=== PATIENT | male | born 2000 | race Caucasian/White ===

== ENCOUNTER 2022-09-14 13:20 | Emergency (ER) | payer OTHER, SELFPAY ==
[2022-09-14 13:48] VITALS: BP 108/85; PULSE 121; RESP 20; TEMP 36.8; O2SAT 98; BMI 22.9
--- NOTE | 2022-09-14 13:48 | ED.GENADULT ---
HPI - General Adult General Chief complaint: Skin/Abscess/Foreign Body Stated complaint: lower back infection Time Seen by Provider: 09/14/22 16:14 Source: patient and RN notes reviewed Mode of arrival: ambulatory Limitations: no limitations History of Present Illness HPI narrative: This is a 22-year-old male who presents the emergency department, accompanied by his grandmother, complaints of redness, pain, and swelling to his upper gluteal cleft. Patient reports that he noticed pain redness and swelling to this area 1 week ago and was seen by his primary care physician at [facility] who prescribed the patient Keflex. Patient reports that they are taking Keflex 4 times a day for 3 days and noticed that the area was not improving the patient was switched to doxycycline 100 mg for 10 days. Patient reports that since taking these antibiotics the pain swelling and redness has not improved. Patient denies any known fevers or chills. There otherwise feeling well. Reports difficulty sitting down as this causes the pain to increase. No drainage from the area. No other complaints or concerns at this time. MD complaint: Pilonidal cyst, cellulitis Onset (ago): week(s) Severity: moderate Quality: aching Pain Consistency: constant Relieving factors: immobilization Exacerbating factors: movement Associated symptoms: denies other symptoms Treatments prior to arrival: none Related Data Allergies Allergy/AdvReac Type Severity Reaction Status Date / Time sertraline [From Zoloft] Allergy Unknown Verified 09/14/22 17:14 Review of Systems Review of Systems: Constitutional: No Weight loss, No Fever, No Chills, No Night Sweats, No Fatigue, No Malaise ENT/Mouth: No Hearing loss, No Ear Pain, No Nasal Congestion, No Sinus Pain, No Hoarseness, No sore throat, No Rhinorrhea, No Swallowing Difficulty Eyes: No Eye Pain, No Swelling, No Redness, No Foreign Body, No Discharge, No Vision Changes Cardiovascular: No Chest Pain, No SOB, No Dyspnea on Exertion, No Orthopnea, No Edema, No Palpitations Respiratory: No Cough, No Sputum, No Wheezing, No Smoke Exposure, No Dyspnea Gastrointestinal: No Nausea, No Vomiting, No Diarrhea, No Constipation, No Abdominal pain, No Hematochezia, No Melena Genitourinary: No irregular bleeding, No Dysuria, No Urinary Frequency, No Hematuria, No Urinary Incontinence/retention, No Urgency, No Flank Pain, No Urinary Flow Changes, No Hesitancy Musculoskeletal: No joint pain, No Myalgias, No Joint Swelling Skin:+ Skin Lesions, No rash Neuro: No Weakness, No Numbness, No Paresthesias, No Loss of Consciousness, No Dizziness, No Headache Psych: No Anxiety/Panic, No Depression, No SI/HI/AH/VH, No Social Issues, Heme/Lymph: No Bruising, No Bleeding,No Lymphadenopathy Endocrine: No Polyuria, No Polydipsia, No Temperature Intolerance Yes all other systems are reviewed and are negative Constitutional: Constitutional: Reports as per HPI [facility] Social History Social History Advance Directives: No Advance Directives Information Provided: No Physical Exam ED Vital Signs: Vital Signs - 24 hr 09/14/22 13:48 09/14/22 16:33 09/14/22 18:17 Temperature 98.3 F 98.7 F 98.7 F Pulse Rate 121 H 97 70 Respiratory Rate 20 20 18 Blood Pressure 108/85 105/63 110/74 Pulse Oximetry 98 97 100 Oxygen Delivery Method Room Air Room Air Room Air BMI result Body Mass Index 22.9 Const General: cooperative, comfortable and no acute distress Orientation/consciousness: patient oriented x3 Limitations: no limitations HENMT Head: Yes normal to inspection, Yes normocephalic and Yes atraumatic Ears: hearing grossly normal bilaterally General nose exam: Normal external nose present Face and sinus: Yes normal facial exam Mouth: Normal oral and palatal mucosa present, oropharynx normal and moist mucous membranes Throat: Yes posterior oropharynx normal Eyes General: appearance normal, both eyes and all related structures Eyelids: Yes eyelids normal Conjunctivae: conjunctivae normal Sclerae: sclerae normal Pupils: Equal, round and reactive pupils present EOM: EOMs intact bilaterally Neck Neck: Yes normal visual inspection, Yes full ROM and Yes no lymphadenopathy Lymphatic: no lymphadenopathy noted Chest Chest palpation & inspection: normal inspection of the chest Resp Effort & Inspection: normal respiratory effort and able to speak in complete sentences Cardio Rate: regular rate Rhythm: regular rhythm Heart sounds: S1 normal heart sound present and S2 normal heart sound present GI Inspection: Yes normal to inspection Skin Other: Erythema, edema, and firmness noted to the gluteal cleft on both sides. There is an area of fluctuance on the left upper gluteal cleft. No drainage. Area of erythema does not extend perirectally. General skin exam: no rashes or lesions noted Trauma: no lacerations or abrasions Wounds: no wounds Neuro General: patient oriented x3 and moves all extremities Cranial nerves: Yes Equal, round and reactive pupils present Extrem General: Yes normal to inspection Right upper extremity: normal to inspection Left upper extremity: normal to inspection Right lower extremity: normal to inspection Left lower extremity: normal to inspection Course Course Course Narrative: RME performed by Anastasia Barker PA-C. Patient is a 22 year old male presenting to the emergency department with a pilonidal cyst. Patient placed back in the waiting room pending room availability. Medications Administered Discontinued Medications Generic Name Dose Route Start Last Admin Trade Name Freemigdio PRN Reason Stop Dose Admin Lidocaine HCl 5 ml 09/14/22 17:14 09/14/22 18:00 Lidocaine Hcl 1 % Mpf 5 Ml Vial EPIDURAL 09/14/22 17:15 5 ml ONCE ONE Administration Procedures Procedure Narrative Procedure Narrative: Local anesthesia achieved with 1% lidocaine. Small incision me in the left gluteal cleft with 11 blade scalpel. Copious amount of brown, foul-smelling drainage expressed. 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 Patient tolerated procedure well without any complications Abscess I/D Site: other (gluteal cleft) Local Anesthetic: lidocaine 1% Amount of anesthesia used (mL): 5 Technique: incised with blade Sent for culture/gram staining?: No Irrigation: No Packing used?: none Medical Decision Making Medical Decision Making [facility] Narrative: 22-year-old male presenting for evaluation of redness, swelling and pain to buttocks. On examination, vital signs are stable, patient mildly tachycardic at 121bpm, is anxious appearing, which has since improved since being brought back into the main emergency department patient is afebrile, all other vital signs within normal limits. Patient has had no fevers, chills, shortness of breath, chest pain. On examination patient has area of fluctuance. Incision and drainage was performed, copious amount of purulence, foul smelling drainage expressed from region. Patient tolerated procedure well. Patient was previously placed on doxycycline and Keflex, advised to take both of these for full coverage. Patient also given referral to surgeon and discussed the importance of following up with them as this likely will need surgical intervention. Patient has good understanding of follow-up care, given precautions of when to return. Patient understands and agrees with plan. Differential Diagnosis Differential Diagnoses: The differential diagnosis associated with the presentation includes Pilonidal cyst, abscess, cellulitis Discharge Plan Discharge Clinical Impression: Cyst, pilonidal, with abscess Patient Disposition: Home, Self-Care Instructions: Pilonidal Cyst (ED) Additional Instructions: We incised and drained your pilonidal cyst today. Expect to have this area continue to drain overnight. Please keep area clean and dry. Do not submerge wound. Do not go swimming. Please take previously prescribed doxycycline 100 mg twice a day, and Keflex 500 mg four times a day for the next 7 days. Take ibuprofen or Tylenol as needed for your pain. You may apply warm compresses to the area as this help bring more drainage the surface. Call the surgeon on Friday morning for follow-up. If any new or worsening symptoms occur including fevers, chills, worsening redness or swelling, or pain please return for re-evaluation. Referrals: [facility] General Surgeons [Provider Group] Interventions: ED Discharge Assessment Last Done: 09/14/22 18:56 Discharge Date/Time: 09/14/22 18:56
--- OUTSIDE RECORDS SUMMARY | 2022-09-14 16:30 | XMS_ITS | Continuity of Care Document ---
Author Name Unknown Organization [facility] Address [address] [place] [address]- Care Team Providers Care Auditor Appraiser Name Role Phone Grey Cobb DO Primary Care Physician Encounter [facility] Date(s): 06/02/20 - 07/06/20 [facility] [address], [place] [address] Attending Physician: Cheko VEGAS, Karon Colon Admitting Physician: Cheko VEGAS, Karon Colon Allergies, Adverse Reactions, Alerts Substance Reaction Severity Status Zoloft Active Immunizations Given and Recorded Vaccine Date Status Refusal Reason influenza virus vaccine, inactivated 06/28/19 Give n Medications 18 gauge 1-1.5 inch leur lock needle on 1 cc syringe 18 gauge 1-1.5 inch leur lock needle on 1 cc syringe, See Instructions, # 24 each, Refills 3, Tot. Refills 3, Maintenance, for use to draw up testosterone, 06/06/20 8:25:00 EST, Compound, 155.5, cm, 06/02/20 14:02:00 EST, Height, 54.2, kg, 02/11/19 11... Start Date: 06/06/20 Status: Ordered 25 gauge 5/8th inch needle 25 gauge 5/8th inch needle, See Instructions, # 24 each, Refills 3, Tot. Refills 3, Maintenance, for use with testosterone, 06/06/20 8:25:00 EST, Compound, 155.5, cm, 06/02/20 14:02:00 EST, Height, 54.2, kg, 02/11/19 11:06:00 EDT, Dry Weight Start Date: 06/06/20 Status: Ordered Misc Rx Refills 0, Maintenance, 02/11/19 11:11:08 EDT, Compound Start Date: 02/11/19 Status: Ordered Misc Rx medical marijuana, Refills 0, Maintenance, 02/11/19 11:23:59 EDT, Compound Start Date: 02/11/19 Status: Ordered omeprazole 20 mg oral enteric coated capsule 1 capsule = 20 mg, By Mouth, Daily, before a meal, # 30 capsule, 4 Refills, Maintenance, 06/02/20 14:50:00 EST, EC [facility], [id number], Partial fill upon patient request if the prescription is for a schedule II opioid drug., 155.5, cm, ... Start Date: 06/02/20 Status: Ordered pantoprazole 40 mg oral delayed release tablet 1 tablet = 40 mg, By Mouth, Daily, # 90 tablet, 0 Refills, Maintenance, 05/31/20 15:28:00 EST, EC Tablet, 155.5, cm, 06/28/19 14:50:00 EDT, Height, 54.2, kg, 02/11/19 11:06:00 EDT, Dry Weight Start Date: 05/31/20 Status: Ordered Testosterone Cypionate 200 mg/mL intramuscular solution See Instructions, 0.5ml (100 mg) Intramuscular Every 14 days, # 2 mL, 6 Refills, Maintenance, 06/06/20 8:22:00 EST, [id number], 155.5, cm, 06/02/20 14:02:00 EST, Height, 54.2, kg, 02/11/19 11:06:00 EDT, Dry Weight Start Date: 06/06/20 Status: Ordered Problem List Condition Effective Dates Status Health Status Inform ant Gender Dysphoria(Confirmed) Active Social History Social History Type Response Smoking Status Never smoker; Tobacc o user in household: No entered on: 12/28/15 Sex Female
--- OUTSIDE RECORDS SUMMARY | 2022-09-14 16:30 | XMS_ITS | Continuity of Care Document ---
Author Name Unknown Organization [facility] Address [address] [place] [address]- Care Team Providers Care Flat Clothier Name Role Phone Grey Cobb DO Primary Care Physician [phone] [facility] Date(s): 09/20/19 - 10/20/19 [facility] [address] [place] [address]- [facility] Attending Physician: Verena Blas Admitting Physician: AdmVerena nuñez Referring Physician: AdmtrVerena Allergies, Adverse Reactions, Alerts Substance Reaction Severity Status Zoloft Active Immunizations Given and Recorded Vaccine Date Status Refusal Reason influenza virus vaccine, inactivated 06/28/19 Give n Medications IM Syringes 1 cc x 1.5 inch x 24 G IM Syringes 1 cc x 1.5 inch x 24 G, See Instructions, # 10 each, Refills 6, Tot. Refills 6, Maintenance, To administer testosterone IM every 2 weeks, 11/12/16 13:46:38, Compound Start Date: 11/12/16 Status: Ordered Lupron Depot-Ped 30 mg/3 months intramuscular kit = 30 mg, Intramuscular, Every 3 months, please dispense 1 depot kit every 3 months, # 1 each, 4 Refills, Maintenance, 09/12/15 17:36:33 Start Date: 09/12/15 Status: Ordered Misc Rx Refills 0, Maintenance, 02/11/19 11:11:08 EDT, Compound Start Date: 02/11/19 Status: Ordered Misc Rx medical marijuana, Refills 0, Maintenance, 02/11/19 11:23:59 EDT, Compound Start Date: 02/11/19 Status: Ordered Testosterone Cypionate 200 mg/mL intramuscular solution = 100 mg, Intramuscular, Every 14 days, # 2 each, 6 Refills, Maintenance, 06/04/19 5:38:00 EST, [id number], 155.5, cm, 02/11/19 11:06:00 EDT, Height, 54.2, kg, 02/11/19 11:06:00 EDT, Dry Weight Start Date: 06/04/19 Status: Ordered Problem List Condition Effective Dates Status Health Status Inform ant Gender Dysphoria(Confirmed) Active Social History Social History Type Response Smoking Status Never smoker; Tobacc o user in household: No entered on: 12/28/15 Sex Female
--- OUTSIDE RECORDS SUMMARY | 2022-09-14 16:30 | XMS_ITS | Continuity of Care Document ---
Author Name Unknown Organization [facility] Address [address] [place] [address]- Care Team Providers Care Legal Writing Professor Name Role Phone Grey Cobb DO Primary Care Physician Encounter [facility] Date(s): 06/06/20 - 07/06/20 [facility] [address], [place] [address] Attending Physician: Verena Blas Admitting Physician: AdmtrVerena Referring Physician: Admtr, Ar8 Allergies, Adverse Reactions, Alerts Substance Reaction Severity [...] EDT, Compound Start Date: 02/11/19 Status: Ordered [facility] Rx medical marijuana, Refills 0, Maintenance, 02/11/19 11:23:59 EDT, Compound Start Date: 02/11/19 Status: Ordered omeprazole 20 mg oral enteric coated capsule 1 capsule = 20 mg, By Mouth, Daily, before a meal, # 30 capsule, 4 Refills, Maintenance, 06/02/20 14:50:00 EST, EC Capsule, [id number], Partial fill upon patient request [...] 6 Refills, Maintenance, 06/06/20 8:22:00 EST, [id number], 155.5, cm, 06/02/20 14:02:00 EST, Height, 54.2, kg, 02/11/19 11:06:00 EDT, Dry Weight Start Date: 06/06/20 Status: Ordered Problem List Condition Effective Dates Status Health Status Inform ant Gender Dysphoria(Confirmed) Active Social History Social History Type Response Smoking Status Never smoker; Tobacc o user in household: No entered on: 12/28/15 Sex Female
--- OUTSIDE RECORDS SUMMARY | 2022-09-14 16:30 | XMS_ITS | Continuity of Care Document ---
Author Name Unknown Organization [facility] Address [address] [place] [address]- Care Team Providers Care District Associate Judge Name Role Phone Grey Cobb DO Primary Care Physician [phone] Encounter [facility] Date(s): 12/14/19 - 01/13/20 [facility] [address] [place] [address]- [facility] Attending Physician: Verena Blas Admitting Physician: Verena Blas Referring Physician: AdmtrVerena Allergies, Adverse Reactions, Alerts [...]
--- OUTSIDE RECORDS SUMMARY | 2022-09-14 16:31 | XMS_ITS | Continuity of Care Document ---
Author Name Unknown Organization [facility] Address [address] [place] [address]- Care Team Providers Care Spark Tester Name Role Phone Grey Cobb DO Primary Care Physician [phone] [place] [facility] Date(s): 06/02/20 - 07/06/20 [facility] [address] [place], [place] [address] Attending Physician: Cheko VEGAS, Karon Colon Admitting [...] Maintenance, 06/02/20 14:50:00 EST, EC Capsule, [id number], Partial fill upon patient request [...] 6 Refills, Maintenance, 06/06/20 8:22:00 EST, [id number], 155.5, cm, 06/02/20 14:02:00 EST, Height, 54.2, kg, 02/11/19 11:06:00 EDT, Dry Weight Start Date: 06/06/20 Status: Ordered Problem List Condition Effective Dates Status Health Status Inform ant Gender Dysphoria(Confirmed) Active Social History Social History Type Response Smoking Status Never smoker; Tobacc o user in household: No entered on: 12/28/15 Sex Female
--- OUTSIDE RECORDS SUMMARY | 2022-09-14 16:31 | XMS_ITS | Continuity of Care Document ---
Author Name Unknown Organization [facility] Address [address] [place] [address]- Care Team Providers Care Recoil Spring Winder Name Role Phone Grey Cobb DO Primary Care Physician [phone] Encounter [facility] Date(s): 08/25/20 - 09/24/20 [facility] [address] [place] [address], [place] [address] Attending Physician: Verena Blas Admitting Physician: AdmtrVerena [...] EDT, Compound Start Date: 02/11/19 Status: Ordered [facility] Rx medical marijuana, Refills 0, Maintenance, 02/11/19 11:23:59 EDT, Compound Start Date: 02/11/19 Status: Ordered omeprazole 20 mg oral enteric coated capsule 1 capsule = 20 mg, By Mouth, Daily, before a meal, # 30 capsule, 4 Refills, Maintenance, 06/02/20 14:50:00 EST, EC Capsule, [id number], Partial fill upon patient request [...] Dry Weight Start Date: 05/31/20 Status: Ordered PEG-3350 with Electrolytes ([id number]) oral powder for reconstitution See Instructions, as directed, # 1 each, 0 Refills, Maintenance, 07/25/20 10:21:00 EDT, [facility] [address] [place] [address] to sub for any gallon prep, as directed, 155.5, cm, 06/02/20 14:02:00 EST, Height, 54.2, kg, 02/11/19 11:06:00 EDT, Dry Weight Start Date: 07/25/20 Status: Ordered Testosterone Cypionate 200 mg/mL intramuscular solution See Instructions, 0.5ml (100 mg) Intramuscular Every 14 days, # 2 mL, 6 Refills, Maintenance, 06/06/20 8:22:00 EST, [id number], 155.5, cm, 06/02/20 14:02:00 EST, Height, 54.2, kg, 02/11/19 11:06:00 EDT, Dry Weight Start Date: 06/06/20 Status: Ordered Problem List Condition Effective Dates Status Health Status Inform ant Gender Dysphoria(Confirmed) Active Social History Social History Type Response Smoking Status Never smoker; Tobacc o user in household: No entered on: 12/28/15 Sex Female
--- OUTSIDE RECORDS SUMMARY | 2022-09-14 16:31 | XMS_ITS | Continuity of Care Document ---
Author Name Unknown Organization [facility] Address [address] [place] [address]- Care Team Providers Care Injury Prevention Coordinator Name Role Phone Grey Cobb DO Primary Care Physician [phone] En[place] [facility] Date[place]s): 07/25/20 - 08/24/[address] [facility] [address] [place] [address] Attending Physician: AdmVerena nuñez Admitting Physician: Admtr, [id number] Referring Physician: Admtr, Ar8 Allergies, Adverse Reactions, [...] EDT, Compound Start Date: 02/11/19 Status: Ordered [facility] Rx medical marijuana, Refills 0, Maintenance, 02/11/19 11:23:59 EDT, Compound Start Date: 02/11/19 Status: Ordered omeprazole 20 mg oral enteric coated capsule 1 capsule = 20 mg, By Mouth, Daily, before a meal, # 30 capsule, 4 Refills, Maintenance, 06/02/20 14:50:00 EST, EC Capsule, [id number], Partial fill upon patient request [...] each, 0 Refills, Maintenance, 07/25/20 10:21:00 EDT, [facility] [address] [place] [address] to sub for any gallon prep, as directed, 155.5, cm, 06/02/20 14:02:00 EST, Height, 54.2, kg, 02/11/19 11:06:00 EDT, Dry Weight Start Date: 07/25/20 Status: Ordered Testosterone Cypionate 200 mg/mL intramuscular solution See Instructions, 0.5ml (100 mg) Intramuscular Every 14 days, # 2 mL, 6 Refills, Maintenance, 06/06/20 8:22:00 EST, [id number], 155.5, cm, 06/02/20 14:02:00 EST, Height, 54.2, kg, 02/11/19 11:06:00 EDT, Dry Weight Start Date: 06/06/20 Status: Ordered Problem List Condition Effective Dates Status Health Status Inform ant Gender Dysphoria(Confirmed) Active Social History Social History Type Response Smoking Status Never smoker; Tobacc o user in household: No entered on: 12/28/15 Sex Female
--- OUTSIDE RECORDS SUMMARY | 2022-09-14 16:31 | XMS_ITS | Continuity of Care Document ---
Author Name Unknown Organization [facility] y Address [address] [place] [address]- Care Team Providers Care Landcare Facilitator Name Role Phone Grey Cobb DO Primary Care Physician [phone] [facility] Date(s): 07/10/20 - 09/24/20 [facility] [address] [place], [place] [address] Attending Physician: Not on Staff, Attending MD Allergies, Adverse Reactions, Alerts Substance Reaction Severity [...] Maintenance, 06/02/20 14:50:00 EST, EC [facility]apsule, [id number], Partial fill upon patient request [...] each, 0 Refills, Maintenance, 07/25/20 10:21:00 EDT, [facility] of [facility], pr to sub for any gallon prep, as directed, 155.5, cm, 06/02/20 14:02:00 EST, Height, 54.2, kg, 02/11/19 11:06:00 EDT, Dry Weight Start Date: 07/25/20 Status: Ordered Testosterone Cypionate 200 mg/mL intramuscular solution See Instructions, 0.5ml (100 mg) Intramuscular Every 14 days, # 2 mL, 6 Refills, Maintenance, 06/06/20 8:22:00 EST, [id number], 155.5, cm, 06/02/20 14:02:00 EST, Height, 54.2, kg, 02/11/19 11:06:00 EDT, Dry Weight Start Date: 06/06/20 Status: Ordered Problem List Condition Effective Dates Status Health Status Inform ant Gender Dysphoria(Confirmed) Active Social History Social History Type Response Smoking Status Never smoker; Tobacc o user in household: No entered on: 12/28/15 Sex Female
--- OUTSIDE RECORDS SUMMARY | 2022-09-14 16:31 | XMS_ITS | Continuity of Care Document ---
Author Name Unknown Organization [facility] Address [address] [place] [address]- Care Team Providers Care Clinical Pharmacy Specialist Name Role Phone Grey Cobb DO Primary Care Physician Encounter [facility] [id number] Date(s): 08/08/20 - 09/07/[address] [address] Attending Physician: Admsavannah, Verena Admitting Physician: Admtr, Ar8 Referring Physician: Admtr, Ar8 Allergies, Adverse Reactions, [...] EDT, Compound Start Date: 02/11/19 Status: Ordered [facility] Rx medical marijuana, Refills 0, Maintenance, 02/11/19 11:23:59 EDT, Compound Start Date: 02/11/19 Status: Ordered omeprazole 20 mg oral enteric coated capsule 1 capsule = 20 mg, By Mouth, Daily, before a meal, # 30 capsule, 4 Refills, Maintenance, 06/02/20 14:50:00 EST, EC [facility]apsule, [id number], Partial fill upon patient request [...] each, 0 Refills, Maintenance, 07/25/20 10:21:00 EDT, [facility], tx to sub for any gallon prep, as directed, 155.5, cm, 06/02/20 14:02:00 EST, Height, 54.2, kg, 02/11/19 11:06:00 EDT, Dry Weight Start Date: 07/25/20 Status: Ordered Testosterone Cypionate 200 mg/mL intramuscular solution See Instructions, 0.5ml (100 mg) Intramuscular Every 14 days, # 2 mL, 6 Refills, Maintenance, 06/06/20 8:22:00 EST, [id number], 155.5, cm, 06/02/20 14:02:00 EST, Height, 54.2, kg, 02/11/19 11:06:00 EDT, Dry Weight Start Date: 06/06/20 Status: Ordered Problem List Condition Effective Dates Status Health Status Inform ant Gender Dysphoria(Confirmed) Active Social History Social History Type Response Smoking Status Never smoker; Tobacc o user in household: No entered on: 12/28/15 Sex Female
[2022-09-14 16:33] VITALS: BP 105/63; PULSE 97; RESP 20; TEMP 37.1; O2SAT 97
[2022-09-14] MEDS: Lidocaine HCl 1 % MPF 5 ML VIAL EPIDURAL (18:00)
[2022-09-14 18:17] VITALS: BP 110/74; PULSE 70; RESP 18; TEMP 37.1; O2SAT 100
== END 2022-09-14 18:56 | disposition home or self-care (01) ==
PROVIDERS: Emergency Provider Emergency Medicine; PCP Nurse Practitioner Adult Health
DX: L05.01 Pilonidal cyst with abscess (principal)
CPT/HCPCS: 10060; 10080; 99283; 99284